=== PATIENT | female | born 1960 | race Hispanic/Latino ===

== ENCOUNTER 2020-10-12 10:46 | Day surgery (SDC) | payer MEDICARE ==
[~2020-10-12] VITALS: Ht 160 cm; Wt 48.5 kg
[2020-10-12] VITALS (11 sets, daily range): BP systolic 86–99; BP diastolic 38–68
[~2020-10-12 10:46] MED LIST: ASCO500C18 PO; CELE200 PO; OMEP40CA13 PO; TELM40 PO; TRAM50TA4 PO; VITA100T5 PO
[2020-10-12] MEDS ORDERED: IOHEXOL-350 50ML VIAL IV ONE (11:35)
[2020-10-12] MEDS ORDERED: INDOMETHACIN 50 MG SUPP.RECT RC SCH (11:45)
[2020-10-12] MEDS ORDERED: PROPOFOL 10 MG/ML 20ML VIAL IV ONE (12:09)
[2020-10-12] MEDS ORDERED: LIDOCAINE HCL 2% 20ML ONE (12:10)
[2020-10-12] MEDS ORDERED: SUCCINYLCHOLINE 200MG/10ML SYR ONE (12:10)
[2020-10-12] MEDS ORDERED: ONDANSETRON HCL 4 MG/2 ML VIAL ONE (12:10)
[2020-10-12] MEDS ORDERED: FENTANYL CITRATE PF 50 MCG/1 ML 2ML VIAL ONE (12:10)
[2020-10-12] MEDS ORDERED: MIDAZOLAM HCL 1 MG/ML 2ML VIAL ONE (12:10)
[2020-10-12] MEDS ORDERED: PHENYLEPHRINE HCL 10 MG/ML 1ML VIAL IV ONE (12:24)
== END 2020-10-12 15:30 | disposition home or self-care (01) ==
LOC: ENDO 10:46 → DAH 10:46 → ENDO 15:30
PROVIDERS: ATTEND Internal Medicine
DX: K31.89 Other diseases of stomach and duodenum (principal); Z20.822 Contact with and (suspected) exposure to COVID-19; K26.9 Duodenal ulcer, unspecified as acute or chronic, without hemorrhage or perforation; K85.90 Acute pancreatitis without necrosis or infection, unspecified; I10 Essential (primary) hypertension; E78.5 Hyperlipidemia, unspecified; F41.9 Anxiety disorder, unspecified; F32.9 Major depressive disorder, single episode, unspecified; F17.210 Nicotine dependence, cigarettes, uncomplicated; Z86.010 Personal history of colon polyps; Z79.899 Other long term (current) drug therapy; Z80.0 Family history of malignant neoplasm of digestive organs
CPT/HCPCS: 43238; 43239; 87426; 88173; 88305 ×2; 88341; 88342; A4215 ×4; A4221; A4222; A4223; A4606; A4657 ×2; A4663; J0330; J2250; J2370; J2405; J2704; J3010; J3490; J7030 ×2; Q9967

== ENCOUNTER 2020-11-21 08:49 | Day surgery (SDC) | payer MEDICARE ==
[2020-11-21] VITALS (8 sets, daily range): BP systolic 93–103; BP diastolic 57–67
[~2020-11-21] VITALS: Ht 154.9 cm; Wt 44.5 kg
[~2020-11-21 08:49] MED LIST changes: +IOHEXOL-350 50ML VIAL IV ONE
[2020-11-21] MEDS ORDERED: INDOMETHACIN 50 MG SUPP.RECT RC SCH (10:45)
[2020-11-21] MEDS ORDERED: SODIUM CHLORIDE 0.9% 1000ML 1,000 ML IV ONE (10:55)
[2020-11-21] MEDS ORDERED: DIAZ10TA4 PO (11:08)
[2020-11-21] MEDS ORDERED: ONDA4TAB4 PO (11:10)
[2020-11-21] MEDS ORDERED: SUCCINYLCHOLINE 200MG/10ML SYR ONE (12:47)
[2020-11-21] MEDS ORDERED: PROPOFOL 10 MG/ML 20ML VIAL IV ONE (12:47)
[2020-11-21] MEDS ORDERED: PROPOFOL 1000 MG/100 ML 0 ML IV ONE (12:48)
== END 2020-11-21 14:25 | disposition home or self-care (01) ==
LOC: DAH 08:49 → ENDO 08:49
PROVIDERS: ATTEND Internal Medicine Gastroenterology
DX: C25.0 Malignant neoplasm of head of pancreas (principal); K31.5 Obstruction of duodenum; R93.3 Abnormal findings on diagnostic imaging of other parts of digestive tract; R11.2 Nausea with vomiting, unspecified; I10 Essential (primary) hypertension; E03.9 Hypothyroidism, unspecified; F41.9 Anxiety disorder, unspecified; F32.9 Major depressive disorder, single episode, unspecified; K57.30 Diverticulosis of large intestine without perforation or abscess without bleeding; Z86.010 Personal history of colon polyps; Z20.822 Contact with and (suspected) exposure to COVID-19; Z79.899 Other long term (current) drug therapy
CPT/HCPCS: 43235; A4215 ×2; A4221; A4222; A4223; A4606; A4620; A4657; A4663; C9803; J2704; J7030; U0003; J0330; Q9967